=== PATIENT | male | born 1960 | race Caucasian/White ===

== ENCOUNTER → 2019-04-13 15:23 | Outpatient (CLI) | payer SELFPAY ==
[2019-04-13 16:52] LABS: PSA,Total - Annual Screen 0.92 ng/mL (0.00-4.00)
== END ==
PROVIDERS: Family Provider Family Medicine; PCP Family Medicine; Referring Provider Nurse Practitioner Adult Health; Visit Provider Nurse Practitioner Adult Health
DX: Z12.5 Encounter for screening for malignant neoplasm of prostate (principal)
CPT/HCPCS: 36415; 84153; G0103

== ENCOUNTER → 2021-01-07 14:23 | Outpatient (CLI) | payer SELFPAY ==
[2021-01-07 17:47] LABS: PSA,Total- Diagnostic 1.15 ng/mL (0.0-4.0)
== END ==
PROVIDERS: Nurse Practitioner Adult Health; PCP Family Medicine
DX: R36.1 Hematospermia (principal)
CPT/HCPCS: 36415; 84153